=== PATIENT | female | born 1970 | race Caucasian/White ===

== ENCOUNTER 2021-10-15 10:06 | Observation (INO) ==
[2021-10-15] MEDS ORDERED: Ondansetron 4 MG/2 ML VIAL IVP ONE (10:29)
[2021-10-15] MEDS ORDERED: *HR* HYDROmorphone (PF) 1 MG/ML SYRINGE IVP ONE (10:29)
[2021-10-15] MEDS ORDERED: 0.9 % Sodium Chloride 1,000 ML IVC ONE (10:29)
[2021-10-15] MEDS ORDERED: Isovue-370 500 ML BOTTLE IVP ONE (10:32)
[2021-10-15 10:49] LABS: Basophils % 0.4 %; Eosinophils % 0.8 %; Hematocrit 40.1 % (35.3-44.9); Hemoglobin 13.8 g/dL (11.5-15.4); Immature Granulocytes % 0.4 % (0-4); Lymphocytes # 1.1 K/mcL (0.6-4.6); Lymphocytes % 21.5 %; Mean Corpuscular HGB Conc 34.4 g/dL (31.6-35.5); Mean Corpuscular Hemoglobin 31.7 pg (28.0-33.3); Mean Corpuscular Volume 92.2 fL (83.0-100.0); Mean Platelet Volume 10.4 fL (9.4-12.4); Monocytes # 0.5 K/mcL (0.0-1.3); Monocytes % 9.8 %; Neutrophils # 3.3 K/mcL (1.6-8.9); Platelet Count 239 K/mcL (140-400); Red Blood Count 4.35 M/mcL (3.82-4.97); Segmented Neutrophils % 67.1 %
[2021-10-15 11:06] LABS: VBG Chloride 109 mEq/L (98-107)
[2021-10-15 11:23] LABS: Alanine Aminotransferase 13 Units/L (7-52); Albumin/Globulin Ratio 1.5 (1.1-2.2); Alkaline Phosphatase 109 Units/L (34-104); Amylase 29 Units/L (29-103); Aspartate Amino Transferase 15 Units/L (13-39); BUN/Creatinine Ratio 38 (6-26); Bilirubin,Indirect 0.3 mg/dL (0.0-1.0); Bilirubin,Total 0.3 mg/dL (0.3-1.0); Blood Urea Nitrogen 15 mg/dL (6-20); Calcium 9.2 mg/dL (8.6-10.3); Carbon Dioxide 27 mEq/L (23-29); Globulin 2.6 g/dL (2.4-3.5); Glucose 105 mg/dL (70-105); Lipase 63 Units/L (11-82); Total Protein 6.6 g/dL (6.4-8.9); eGFR For African Americans > 60 (> 60); eGFR For Non-African Americans > 60 (> 60)
[2021-10-15] MEDS ORDERED: D5% in Water 1,000 ML IVC SCH (11:30)
[2021-10-15 11:41] LABS: Bilirubin,Urine Negative (Negative); Blood,Urine Trace-intact (Negative); Clarity,Urine Clear (Clear); Color,Urine Yellow (Yellow); Glucose,Urine (UA) Normal (Normal); Ketones,Urine Negative (Negative); Leukocyte Esterase,Urine Negative (Negative); Nitrite,Urine Negative (Negative); PH,Urine 5.5 pH Units (5.0-8.0); Protein,Urine Negative (Neg-Trace); Specific Gravity,Urine 1.025 (1.010-1.025); Urobilinogen,Urine Normal (Normal)
[2021-10-15 11:50] LABS: Bacteria,Urine Few per hpf (None-Few); Mucus,Urine Few per lpf (None-Few); RBC,Urine 0-3 per hpf (0-3); Squamous Epithelial Cell,Urine Few per hpf (None-Few)
[2021-10-15] MEDS ORDERED: Ondansetron 4 MG/2 ML VIAL IVP PRN (13:56)
[2021-10-15] MEDS ORDERED: Naloxone 0.4 MG/ML INJ IVP PRN (13:56)
[2021-10-15] MEDS ORDERED: Acetaminophen 325 MG TABLET PO PRN (13:56)
[2021-10-15] MEDS ORDERED: *HR* OxyCODONE/APAP 10/325 TABLET PO ONE (13:57)
[2021-10-15] MEDS ORDERED: Acetaminophen/Butalbital/CaffeineTABLET PO PRN (14:53)
[2021-10-15] MEDS ORDERED: tiZANidine 4 MG TABLET PO PRN (14:58)
[2021-10-15] MEDS ORDERED: *HR* OxyCODONE/APAP 10/325 TABLET PO SCH (15:00)
[2021-10-15] MEDS: D5% in 0.45% NACL 1,000 ML IVC SCH (15:05)
[2021-10-15] MEDS: Sucralfate 1 GM TABLET PO SCH (16:01)
[2021-10-15 16:41] LABS: BUN/Creatinine Ratio 35 (6-26); Blood Urea Nitrogen 12 mg/dL (6-20); Calcium 8.7 mg/dL (8.6-10.3); Carbon Dioxide 26 mEq/L (23-29); Chloride 108 mEq/L (98-107); Glucose 100 mg/dL (70-105); Osmolality,Calculated 296 (280-300); Potassium 2.9 mEq/L (3.5-5.1); Sodium 143 mEq/L (136-145); eGFR For African Americans > 60 (> 60); eGFR For Non-African Americans > 60 (> 60)
[2021-10-15] MEDS: *HR* OxyCODONE/APAP 10/325 TABLET PO PRN (21:48)
[2021-10-15] MEDS: Fluticasone Propionate Nasal 50 MCG/SPRAY BOTTLE NS SCH (21:52)
[2021-10-16] MEDS: D5% in 0.45% NACL 1,000 ML IVC SCH (02:48)
[2021-10-16] MEDS: Morphine Sulfate 2 MG/ML SYRINGE IVP PRN ×2 (02:48→09:20)
[2021-10-16 03:08] VITALS: BP 134/87; PULSE 67; RESP 14; TEMP 97.8; O2SAT 97
[2021-10-16] MEDS: *HR* OxyCODONE/APAP 10/325 TABLET PO PRN ×2 (06:32→15:05)
[2021-10-16 07:59] LABS: Hemoglobin 13.2 g/dL (11.5-15.4); Mean Corpuscular HGB Conc 33.8 g/dL (31.6-35.5); Mean Corpuscular Hemoglobin 31.7 pg (28.0-33.3); Mean Corpuscular Volume 93.8 fL (83.0-100.0); Mean Platelet Volume 10.7 fL (9.4-12.4); Platelet Count 214 K/mcL (140-400); Red Blood Count 4.16 M/mcL (3.82-4.97); Red Cell Distribution Width 12.2 % (11.5-14.5); White Blood Count 3.3 K/mcL (4.3-11.1)
[2021-10-16] MEDS ORDERED: NON-FORMULARY MEDICATION 1 EACH EACH (Ezetimibe [Zetia] 10 MG Tablet) PO SCH (09:00)
[2021-10-16] MEDS ORDERED: Potassium Citrate 10 MEQ TABLET.ER PO SCH (09:00)
[2021-10-16] MEDS ORDERED: amLODIPine 5 MG TABLET PO SCH (09:00)
[2021-10-16] MEDS ORDERED: hydroCHLOROthiazide 25 MG TABLET PO SCH (09:00)
[2021-10-16] MEDS: Sucralfate 1 GM TABLET PO SCH ×2 (09:05→11:22)
[2021-10-16] MEDS: Fluticasone Propionate Nasal 50 MCG/SPRAY BOTTLE NS SCH (09:06)
[2021-10-16 09:49] LABS: VBG Chloride 106 mEq/L (98-107)
[2021-10-16 10:18] LABS: BUN/Creatinine Ratio 19 (6-26); Blood Urea Nitrogen 7 mg/dL (6-20); Calcium 8.6 mg/dL (8.6-10.3); Carbon Dioxide 28 mEq/L (23-29); Glucose 93 mg/dL (70-105); Magnesium 1.5 mg/dL (1.6-2.6); eGFR For African Americans > 60 (> 60); eGFR For Non-African Americans > 60 (> 60)
[2021-10-16 14:36] LABS: BUN/Creatinine Ratio 12 (6-26); Blood Urea Nitrogen 5 mg/dL (6-20); Calcium 9.1 mg/dL (8.6-10.3); Carbon Dioxide 29 mEq/L (23-29); Chloride 107 mEq/L (98-107); Glucose 98 mg/dL (70-105); Osmolality,Calculated 293 (280-300); Potassium 3.6 mEq/L (3.5-5.1); Sodium 143 mEq/L (136-145); eGFR For African Americans > 60 (> 60); eGFR For Non-African Americans > 60 (> 60)
== END 2021-10-16 16:10 | disposition home or self-care (01) ==
LOC: EMEROOPIK 10:06 → INPPIK 10:06
PROVIDERS: ADMIT Internal Medicine; ATTEND Internal Medicine